=== PATIENT | female | born 1985 | race Caucasian/White ===

== ENCOUNTER 2020-05-17 08:26 | Emergency (ER) | payer OTHER ==
--- OUTSIDE RECORDS SUMMARY | 2020-05-17 08:28 | XMS REPORT | Summary of Care ---
:1985 Author Organization [facility] - Health Address [address] [place] [address] Care Team Providers Name Role Phone Rocky Aleman MD Medicaid Hmo Unavailable Lerma, E Primary Care Provider Encounter Details Date Type Department Care Team Description 03/31/2020 Orders Only [facility] Doctor Unassigned, No [address] [facility] [place] [address] [place] [id number] Allergies No Known Allergiesdocumented as of this encounter (statuses as of 03/31/2020) Medications Medication Sig Dispensed Refills Start Date End Date Status SUBOXONE 8-2 mg Film 0 06/08/2015 Active ibuprofen 600 mg Take 1 tablet by 30 tablet 1 08/17/2018 Active tablet mouth every 6 (six) hours as needed for Pain (scale 1-3) or Pain (scale 4-6) (Pain). Take with food or milk. Hospital, Clinic, or Other Ordered Dose Route Frequency Start Date End Date Status Facility Administered Medication medroxyPROGESTERone 150 mg IM [id number] 08/16/2019 0 Active (DEPO-PROVERA) injection 150 mg documented as of this encounter (statuses as of 03/31/2020) Active Problems Problem Noted Date 39 weeks gestation of 08/17/2018 Threatened labor at term 08/17/2018 Liveborn , of cruz , born in [facility] by vaginal 08/16/2018 delivery Postmaturity , 40-42 weeks gestation 08/15/20 18 Anemia of mother in , antepartum 06/06/2018 Medication exposure during first trimester of pregnanc y 02/23/2018 Rubella non-immune status, antepartum 12/19/2017 Overview: Address in PP Supervision of high risk in first trimester 12/15/2017 Multiparity 12/15/2017 Missed menses 12/15/2017 Needs flu shot 12/15/2017 Suboxone maintenance treatment complicating , antepartum, third 12/15/2017 trimester Depression, unspecified depression type 12/15/2017 Obesity, unspecified 08/25/2016 Well woman exam 08/25/2016 Other general counseling and advice for contraceptive management 08/25/2016 Herpes, vulvar 10/21/2015 documented as of this encounter (statuses as of 03/31/2020) Resolved Problems Problem Noted Date Resolved Date Depo-Provera contraceptive status 12/06/20132015 Encounter for routine gynecological examination 12/06/2013 08/25/2016 Overview: ICD10 Diagnosis Term 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 Precipitate labor, with delivery 06/28/2009 014 Substance abuse 06/28/2009 12/06/2013 Overview: THC Second-degree perineal laceration, with delivery 06/28/2009 12/06/2013 Second-degree perineal laceration in 06/27/2009 12/06/2013 Overview: ICD10 Diagnosis Term 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 Supervision of normal first 03/08/2008 Normal delivery 03/08/2008 06/27/2009 Overview: Presented in active labor documented as of this encounter (statuses as of 03/31/2020) Immunizations Name Administration Dates Next Due Influenza Virus Vaccine 09/21/2007 Influenza Virus Vaccine Quad .5 mL IM 6+ MO 10/04/2018 Influenza Virus Vaccine Quad IM 3+ YRS 12/15/2017 Rubella 11/04/2008 Tdap 05/18/2018, 11/11/2011 documented as of this encounter Social History Tobacco Use Types Packs/Day Years Used Date Never Smoker Smokeless Tobacco: Never Used Alcohol Use Drinks/Week oz/Week Comments No 0 Standard drinks or equivalent 0.0 Sex Assigned at Date Recorded Not on file Job Start Date Occupation Industry Not on file Not on file Not on file Travel History Travel Start Travel End No recent travel history available. COVID-19 Exposure Response Date Recorded In the last month, have you been in contact with No / Unsure 03/31/2020 10:03 AM CDT someone who was confirmed or suspected to have Coronavirus / COVID-19? documented as of this encounter Last Filed Vital Signs Not on filedocumented in this encounter Plan of Treatment Date Type Specialty Care Team Description 07/16/2020 Office Visit Obstetrics & Gynecology Caren Groves PA-C [address] [phone] Health Maintenance Due Date Last Done Comments INFLUENZA VACCINE (Season 07/22/2020 10/04/2018, 12/15/2017 , Ended) 09/21/2007 PAP SMEAR 07/16/2022 07/16/2019, 06/18/2015, 11/11/2011, Additional history exists DTaP,Tdap,and Td Vaccines 05/18/2028 05/18/2018, 11/11/2011 (3 - Td) PNEUMOCOCCAL 0-64 YEARS Aged Out No longe r eligible COMBINED SERIES based on patient 's age to complete this topic documented as of this encounter Procedures Procedure Name Priority Date/Time Associated Diagnosis Comme nts ASSIGNMENT OF BENEFITS Routine 03/31/2020 10:05 AM CDT documented in this encounter Results Not on filedocumented in this encounter Insurance Payer Benefit Plan / Subscriber ID Effective Phone Address T [facility] xxxxxxxxx 2016-Pres [address] Medic aid HEALTH CHOICE - HEALTH CHOICE ent [id number] 1 MANAGED MEDICAID [place], [place]ID [phone] documented as of this encounter Advance Directives Type Date Recorded Patient Arranging Funeral Director Explanati on Advance Directives and Living Will Power of Carry All Driver Name Relationship Healthcare Agent Communication Relationship Rosenda Leedavidog Sibling Primary healthcare agent Delfina Leedavidog Mother [facility] healthcare [phone] agent ([phone] (Home)
--- OUTSIDE RECORDS SUMMARY | 2020-05-17 08:28 | XMS REPORT | Continuity of Care Document ---
:1985 Author Organization [facility] t Address [address] [place] [address] Care Team Providers Name Role Phone Nurse, [facility] Attending Clinician Unavailable Doctor Unassigned, Name Attending Clinician Unavailable 2, Lab Attending Clinician Unavailable Germain NORTH Attending Clinician Problems This patient has no known problems. Allergies, Adverse Reactions, Alerts This patient has no known allergies or adverse reactions. Medications This patient has no known medications. Procedures This patient has no known procedures. Encounters Start End Encounter Admission Attending Care Care Encounter Source Date/Time Date/Time Type Type Clinicians Facility Department ID 2020-03-31 2020-03-31 Nurse Nurse, [facility] [id number] 10:06:14 10:21:14 Visit [facility] [place] [id number] [facility] [id number] Vanessa [phone] [address] 2020-03-31 2020-03-31 Orders Doctor AARON [id number] 00:00:00 00:00:00 Only UnassignedRUDOLPH [id number] [place] [facility] [id number] 2020-01-07 2020-01-07 Nurse Nurse, [facility] [id number] 14:47:04 15:35:02 Visit Women's Kindra [id number] [facility] [id number] Professio [id number] formerly [facility] [address] Building 2019-12-21 2019-12-21 Orders Doctor AARON [id number] 00:00:00 00:00:00 Only Unassigned, RUDOLPH [id number] [place] [facility] [phone] [facility] 2019-07-16 2019-07-16 Mandrel Press Hand 2, Adc Lab [facility] [id number] 10:35:12 10:50:12 Visit [place] [id number] [place] [id number] Professio [phone] formerly [facility] 353 [facility] 2019-07-16 2019-07-16 Office Germain [facility] [id number] 09:39:30 10:28:33 Visit Caren Arguelles [id number] [place] [id number] Professio [phone] formerly [facility] 134 [facility] Results This patient has no known results.
--- OUTSIDE RECORDS SUMMARY | 2020-05-17 08:29 | XMS REPORT | Summary of Care ---
:1985 Author Organization [facility] - [facility] Address [address] [place] [address] Care Team Providers Name Role Phone Rocky Aleman MD Medicaid Hmo Unavailable Lerma, E Primary Care Provider Reason for Visit Reason Comments NURSE VISIT Depo shot Encounter Details Date Type Department Care Team Description 03/31/2020 Nurse Visit [facility] Women's UriasMaritza MD [address] [place] [address] DRDianna Estevan [address] [place] [address] Encounter for Healthcare- Kindra Nurse, [facility] Women's Health management and [address] [place] [address], [facility] n of [address] depo-Provera ([place], [place]) [phone] Allergies No Known Allergiesdocumented as of this [...] Facility Administered Medication medroxyPROGESTERone 150 mg IM [id number] 08/16/2019 0 Active (DEPO-PROVERA) injection 150 mg medroxyPROGESTERone 150 mg IM ONCE 03/31/2020 0 Ended (DEPO-PROVERA) injection 150 mg documented as of this encounter (statuses as of 03/31/2020) Active Problems Problem Noted Date 39 weeks gestation of 08/17/2018 Threatened labor at term 08/17/2018 Liveborn infant, of cruz , born in [facility] by vaginal 08/16/2018 delivery Postmaturity [...] examination 12/06/2013 08/25/2016 Overview: ICD10 Diagnosis 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 Precipitate labor, with delivery 06/28/2009 014 Substance abuse 06/28/2009 12/06/2013 Overview: THC Second-degree perineal laceration, with delivery 06/28/2009 12/06/2013 Second-degree perineal laceration in 06/27/2009 12/06/2013 Overview: ICD10 Diagnosis 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 Supervision of normal first 03/08/2008 Normal [...] of this encounter Last Filed Vital Signs Vital Sign Reading Time Taken Comments Blood Pressure 108/68 03/31/2020 10:57 AM CDT Pulse 66 03/31/2020 10:57 AM CDT Temperature 36.8 C (98.3 F) 03/31/2020 10:57 AM CDT Respiratory Rate - - Oxygen Saturation 98% 03/31/2020 10:57 AM CDT Inhaled Oxygen Concentration - - Weight 74.2 kg (163 lb 9.6 oz) 03/31/2020 10:57 AM CDT Height 162.6 cm (5' 4") 03/31/2020 10:57 AM CDT Body Mass Index 28.08 03/31/2020 10:57 AM CDT documented in this encounter Progress Notes Rubi Romero RN - 03/31/2020 10:00 AM CDT34 year old female has been identified by and name. Verbal consent has been obtained by patientto have an injection of Depo Provera, as ordered by the provider. Date of last Depo Provera injection: 01.07.2020 Last Pap Smear: WWE due in June 2020 Encounter Diagnosis: Z30.42 The site was cleaned with an alcohol swab and given intramuscularly (IM) in the right dorsogluteus.A band aid dressing was then applied to the injection site. The patient tolerated the procedure well . documented in this encounter Plan of Treatment Date Type Specialty Care Team Description 07/16/2020 Office Visit Obstetrics & Gynecology Caren Groves PA-C [address] [place] [phone] Health Maintenance Due Date Last Done Comments INFLUENZA VACCINE (Season 07/22/2020 10/04/2018, 12/15/2017 , Ended) 09/21/2007 PAP SMEAR 07/16/2022 07/16/2019, 06/18/2015, 11/11/2011, Additional history exists DTaP,Tdap,and Td Vaccines 05/18/2028 05/18/2018, 11/11/2011 (3 - Td) PNEUMOCOCCAL 0-64 YEARS Aged Out No longe r eligible COMBINED SERIES based on patient 's age to complete this topic documented as of this encounter Results Not on filedocumented in this encounter Visit Diagnoses Diagnosis Encounter for management and injection o f depo-Provera - Primary Surveillance of other previously prescri bed contraceptive method documented in this encounter Administered Medications Medication Order MAR Action Action Date Dose Rate Site medroxyPROGESTERone Given 03/31/2020 10:55 150 mg Right (DEPO-PROVERA) injection 150 AM CDT Dorsogluteal-IM mg 150 mg, Intramuscular, ONCE, 1 dose, 03/31/20 at 1145, Routine documented in this encounter Insurance Payer Benefit Plan / Subscriber ID Effective Phone Address T [facility] xxxxxxxxx 2016-Pres [address] Medic aid HEALTH CHOICE - HEALTH CHOICE ent [id number] 1 MANAGED MEDICAID [place], [place] [phone] documented as of this encounter Advance Directives Type Date Recorded Patient Hearing Specialist Explanati on Advance Directives and Living Will Power of Ship Boat Or Barge Mate Name Relationship Healthcare Agent Communication Relationship Rosenda Cassi Sibling Primary healthcare agent Delfina Cassi Mother [facility] [phone] agent (Mobile)
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
[2020-05-17 10:52] VITALS: TEMP 98.3
[2020-05-17 10:53] VITALS: BP 123/78; O2SAT 98
--- NOTE | 2020-05-17 11:16 | RAD REPORT ---
EXAM DESCRIPTION: RAD - Hand Left 3 View - 05/17/2020 9:13 am CLINICAL HISTORY: PAIN COMPARISON: No comparisons FINDINGS: No acute fracture or dislocation seen.
--- NOTE | 2020-05-17 11:16 | RAD REPORT ---
EXAM DESCRIPTION: RAD - Forearm Left - 05/17/2020 9:13 am CLINICAL HISTORY: PAIN COMPARISON: No comparisons FINDINGS: No acute fracture or dislocation is seen. Mild soft tissue swelling along the dorsum of th e wrist.
== END 2020-05-17 10:46 | disposition home or self-care (01) ==
LOC: ER 08:26
DX: S60.212A Contusion of left wrist, initial encounter (principal); S60.222A Contusion of left hand, initial encounter; S50.02XA Contusion of left elbow, initial encounter; W10.9XXA Fall (on) (from) unspecified stairs and steps, initial encounter; Y93.89 Activity, other specified; Y92.9 Unspecified place or not applicable; G89.29 Other chronic pain
CPT/HCPCS: 99283